=== PATIENT | female | born 1960 | race Caucasian/White ===

== ENCOUNTER → 2023-05-11 07:36 | Outpatient (REF) | payer OTHER, SELFPAY | LOC: RAD 07:36 | PROVIDERS: ATTENDING PHYSICIAN Internal Medicine; FAMILY PHYSICIAN Internal Medicine | DX: Z87.891 Personal history of nicotine dependence (principal) | CPT/HCPCS: 71271 ==

== ENCOUNTER 2024-08-18 22:26 | Emergency (ER) | payer OTHER, SELFPAY ==
[2024-08-18 22:36] VITALS: BP 100/72
[2024-08-18 22:44] VITALS: BMI 35.5
[2024-08-18 23:00] VITALS: BP 113/62
[2024-08-18 23:09] LABS: % Basophils 0.7 % (0-2); % Immature Granulocytes 0.6 % (0-0.5); % Lymphocytes 40.3 % (20.5-51.1); % Neutrophils 48.4 % (42.2-75.2); Absolute Basophils 0.1 10^3/uL (0-0.2); Absolute Eosinophils 0.3 10^3/uL (0-0.7); Absolute Immature Granulocytes 0.1 10^3/uL (0-0.05); Absolute Lymphocytes 3.5 10^3/uL (1.2-3.4); Absolute Monocytes 0.6 10^3/uL (0.1-0.6); Absolute Neutrophils 4.2 10^3/uL (1.4-6.5); Hematocrit 24.4 % (37.0-47.0); Hemoglobin 7.8 g/dL (12.0-16.0); Mean Corpuscular Hgb 28.6 pg (27.0-31.0); Mean Corpuscular Volume 89.4 fL (81.0-99.0); Nucleated Red Blood Cells % 0.2 %; Platelet Count 448 10^3/uL (130-400); Red Blood Cell Count 2.73 10^6/uL (4.20-5.40); Red Cell Dist. Width 15.7 % (11.5-14.5); White Blood Cell Count 8.7 10^3/uL (4.8-10.8)
[2024-08-18 23:21] LABS: ALT (SGPT) 12 U/L (0-35); AST (SGOT) 18 U/L (14-36); Albumin 3.2 g/dl (3.5-5.0); Alkaline Phosphatase 148 U/L (38-126); Blood Urea Nitrogen 12 mg/dl (7-17); Calcium 9.5 mg/dl (8.4-10.2); Carbon Dioxide 33 mmol/L (22-30); Chloride 103 mmol/L (98-107); Estimated Creatinine Clearance 92 ml/min; Glucose 111 mg/dl (70-99); Potassium 4.1 mmol/L (3.5-5.1); Sodium 139 mmol/L (135-145); Total Bilirubin 0.3 mg/dl (0.2-1.3); Total Protein 5.7 g/dl (6.3-8.2); eGFR > 60.00
[2024-08-19] VITALS: BP 109/55
--- NOTE | 2024-08-19 00:01 | ED.GENMED ---
History of Present Illness
General
Chief Complaint: Abnormal Lab Value
Source: patient
Exam Limitations: none
Time Seen by Provider: 08/18/24 23:11
Nursing documentation reviewed up to this point in time: agreed with
History of Present Illness
History of Present Illness:
64-year-old female presenting to the emergency department today with concerns of a low hemoglobin as an outpatient. She denies any symptoms. Did have left-sided leg surgery 1 week ago at [facility]. No bleeding.
Past History
Past History
ED Past Medical History: Other (Bipolar, depression )
Social History
Tobacco: Smoker
Alcohol: None
Family History
Family History: Negative Diabetes, Early CAD or CAD
Review of Systems
Review of Systems
Allergies reviewed?: Yes
All Other Systems: ROS reviewed and negative except as documented in HPI and ROS
Phy Exam
Physical Exam
Physical Exam:
GENERAL: Alert , in no apparent distress
EYE: pupils equal and reactive
NECK: Supple, no significant adenopathy.
ENT: o/p clr, mmm.
CARDIAC: Regular rate and rhythm .
LUNGS: Clear breath sounds bilaterally, no acute respiratory distress, no wheezes/rales/rhonchi
ABDOMEN: Soft, without focal tenderness, no r/g, no cvat
NEUROLOGICAL: Alert and oriented, no focal neuro deficits
SKIN: Warm and dry, skin intact.
MUSCULOSKELETAL: No edema, well perfused.
PSYCH: Normal and appropriate interaction.
Course
Orders/Labs/Results
Orders:
Orders
08/18/24 22:57
Type And Crossmatch [Type+Screen] Urgent
Complete Blood Count/With Diff Urgent
Comprehensive Metabolic Panel Urgent
08/18/24 23:23
ABO2 Urgent
BBK Wristband Number:
Associate notified that ABO2 has been ordered: [id number]
Date: 08/18/24
Time: 23:05
The[employer]iding Instructor ID: [id number]
Abnormal Lab Results
08/18/24
22:57
RBC 2.73 L 10^6/uL
(4.20-5.40)
Hgb 7.8 L g/dL
(12.0-16.0)
Hct 24.4 L %
(37.0-47.0)
MCHC 32.0 L g/dL
(33.0-37.0)
RDW 15.7 H %
(11.5-14.5)
Plt Count 448 H 10^3/uL
(130-400)
Abs Immat Gran (auto) 0.1 H 10^3/uL
(0-0.05)
Absolute Lymphs (auto) 3.5 H 10^3/uL
(1.2-3.4)
Immature Gran % 0.6 H %
(0-0.5)
Carbon Dioxide 33 H mmol/L
(22-30)
Glucose 111 H mg/dl
(70-99)
Alkaline Phosphatase 148 H U/L
(38-126)
Total Protein 5.7 L g/dl
(6.3-8.2)
Albumin 3.2 L g/dl
(3.5-5.0)
08/18/24 22:57
08/18/24 22:57
Vital Signs
Initial and Last Documented VS:
Initial Vital Signs
Temp Pulse Resp BP Pulse Ox
98.6 F 86 18 100/72 95
08/18/24 22:36 08/18/24 22:36 08/18/24 22:36 08/18/24 22:36 08/18/24 22:36
Last Documented Vital Signs
Temp Pulse Resp BP Pulse Ox
98.6 F 86 17 113/62 100
08/18/24 22:36 08/19/24 02:16 08/19/24 02:16 08/19/24 02:16 08/19/24 02:16
MDM/Problems Addressed
MDM/Problems Addressed:
64-year-old female presenting to the [facility] today with concerns of low hemoglobin as an outpatient. Here hemoglobin 7.8. She denies any current symptoms. No bleeding rectal examination with no blood in her stool stable for close monitoring as an
outpatient. Return precautions given.
*Critical Care Note
Total Time (30-74mins, 75-104mins- exclusive of procedures): Not Applicable
ED Attending Note
-
Portions of this chart may have been created with voice recognition software.� Occasional wrong word or��sound alike� substitutions may have occurred due to the inherent limitations of voice recognition software.
Discharge Plan
Departure
Patient Disposition: Intermediate/SNF
Date of Disposition: 08/19/24
Time of Disposition: 00:02
Patient with high blood pressure during this ER visit?: No
Condition: Good
Covid-19: Not Applicable
Discharge Problem:
Anemia
Instructions: Anemia in adults, possibly from low iron - ED discharge instructions
Prescriptions:
No Action
lithium carbonate 300 MG tablet extended release
600 PO HS
trazodone 100 MG tablet
100 mg PO HS
oxcarbazepine [Trileptal] 600 MG tablet
1,200 mg PO BID
CYMBALTA
90 mg DAILY
Klonopin
2.5 mg PO HS
LISINOPRIL
20 mg PO HS
[place] Carbonate Er
300 mg PO DAILY
acyclovir 400 MG tablet
400 mg PO PRN PRN (Reason: cold sores)
aspirin 81 MG tablet,delayed release (DR/EC)
81 mg PO DAILY
nitroglycerin [NitroTab] 0.4 MG tablet, sublingual
0.4 mg sublingual PRN PRN (Reason: billary dyskinesia)
multivitamin with folic acid [Tab-A-Marvin] 1 TABLET tablet
1 tab PO DAILY
Percocet
PRN (Reason: pain)
Vivelle-Dot
0.075 mg TD 2XW
Patient Comments:
apply thursday,
Referrals:
UNKNOWN - PT DOES,NOT KNOW [Family Provider]
Activity Restrictions/Additional Instructions:
You came to the emergency department today with concerns of low hemoglobin. Here it was significantly higher than the outpatient lab. There was no evidence of any ongoing bleeding. This will need to be monitored closely as an outpatient. You
should also consider starting iron supplementation. Return for any worsening, new or concerning symptoms.
Interventions
Interventions:
*Risk Screen - Suicide Last Done: 08/18/24 22:44
*General Assessment Last Done: 08/18/24 22:44
*Neglect/Abuse Screening Last Done: 08/18/24 22:44
*ED- Fall Risk Assessment Last Done: 08/18/24 22:44
*ED COVID-19 Vaccine History Last Done: 08/18/24 22:44
Discharge Date and Time
Print Language: CHINESE
[2024-08-19 02:16] VITALS: BP 113/62
== END 2024-08-19 04:29 ==
LOC: EMR 22:26
PROVIDERS: EMERGENCY PHYSICIAN Student in an Organized Health Care Education/Training Program
DX: D64.9 Anemia, unspecified (principal); F31.9 Bipolar disorder, unspecified; F17.200 Nicotine dependence, unspecified, uncomplicated
CPT/HCPCS: 99284; 80053; 85025; 86850; 86900; 86901

== ENCOUNTER → 2024-11-10 09:23 | Outpatient (REF) | payer OTHER, SELFPAY ==
[2024-11-10 09:51] VITALS: BP 135/79; BP_SYST 82
[2024-11-10 10:01] LABS: INR 1.07; PT 14.4 Sec (11.4-14.6)
[2024-11-10 12:15] VITALS: BP 148/81
== END ==
LOC: RADI 09:23
PROVIDERS: ATTENDING PHYSICIAN Internal Medicine; REFERRING PHYSICIAN Physician Assistant
DX: Z45.89 Encounter for adjustment and management of other implanted devices (principal); Z86.718 Personal history of other venous thrombosis and embolism
CPT/HCPCS: 36415; 37191; 85610; 99152; 99153; C1769; C1773